=== PATIENT | female | born 1955 | race Caucasian/White ===

== ENCOUNTER 2017-02-14 09:40 | Emergency (ER) | payer OTHER ==
[2017-02-14 09:50] VITALS: PULSE 68; RESP 18
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
[2017-02-14 11:29] VITALS: BP 114/97; TEMP 97.7; O2SAT 97
== END 2017-02-14 11:29 | disposition home or self-care (01) ==
LOC: EDUNIT#
DX: S16.1XXA Strain of muscle, fascia and tendon at neck level, initial encounter (principal); Z79.82 Long term (current) use of aspirin; Z87.891 Personal history of nicotine dependence; V49.49XA Driver injured in collision with other motor vehicles in traffic accident, initial encounter; Y92.410 Unspecified street and highway as the place of occurrence of the external cause; Y99.8 Other external cause status; Y93.89 Activity, other specified

== ENCOUNTER → 2017-03-09 | Outpatient (CLI) | payer OTHER | LOC: FIMAGING 14:45 | PROVIDERS: ATTEND Internal Medicine | DX: Z12.31 Encounter for screening mammogram for malignant neoplasm of breast (principal); Z80.3 Family history of malignant neoplasm of breast | CPT/HCPCS: G0202 ==

== ENCOUNTER → 2018-03-13 | Outpatient (CLI) | payer OTHER | LOC: FIMAGING 15:57 | PROVIDERS: ATTEND Obstetrics & Gynecology | DX: Z12.31 Encounter for screening mammogram for malignant neoplasm of breast (principal); Z80.3 Family history of malignant neoplasm of breast ==

== ENCOUNTER 2018-05-12 21:13 | Emergency (ER) | payer OTHER ==
[2018-05-12] MEDS ORDERED: ACETAMINOPHEN 325 MG TAB ONE (21:27)
[2018-05-12] MEDS: ACETAMINOPHEN 325 MG TAB PO ONE (21:28)
[2018-05-12] MEDS: NS 1,000 ML IV ONE (21:48)
--- NOTE | 2018-05-12 21:58 | EDPHY ---
H & P Stated Complaint: surg thurs now fever Time Seen by Provider: 05/12/18 21:39 HPI/ROS: CHIEF COMPLAINT: Fever HISTORY OF PRESENT ILLNESS: This is a 62-year-old female who underwent replacement of bilateral breast implants and bilateral thigh liposuction on May 09. Today is postoperative day 2. Two hoursrs prior to her presentation she developed fever and shaking chills. She had nausea but no vomiting. She has been feeling a bit off throughout the day and states that she did not eat or drink very much today. She denies cough or shortness of breath. She does not have abdominal pain. She has moved her bowels postoperatively. She has had some burning with urination. She states that she was diagnosed with a vaginal yeast infection preoperatively and treated with Diflucan. She has also taken Monistat for this. REVIEW OF SYSTEMS: A ten point review of systems was performed and is negative with the exception of the items mentioned in the HPI. Past medical and surgical history: 1. Bipolar 2. Depression/anxiety 3. Bilateral breast implants with recent replacement 4. Tummy tuck 5. Bilateral liposuction 6. Bilateral hip replacements 7. Left knee replacement Social history: General Appearance: Alert. Vital signs reviewed. Heart rate 102, temperature 39.3 degrees, blood pressure 129/92, room air pulse ox 96%. Respiratory rate 22. Eyes: Pupils equal and round, no conjunctival injection, no discharge. Anicteric. ENT, Mouth: Mucous membranes are moist, no oropharyngeal erythema or edema. Neck: No lymphadenopathy, supple. Respiratory: Lungs are clear to auscultation; no wheezes, rales, or rhonchi. Thorax: Breasts without significant erythema or localized warmth. Her skin is warm throughout. Cardiovascular: Slightly tachycardic; no murmur, rub, or gallop. Gastrointestinal: Abdomen is soft and nontender, no masses or organomegaly, bowel sounds normal. Skin: Dry, no rashes on exposed skin, normal color. Back: Nontender to palpation over the thoracolumbar spine. No CVAT. Extremities: No lower extremity edema, no calf tenderness or swelling. She is wearing Mervin hose. No obvious erythema or localized warmth over either hip where the liposuction was performed. Neurological: Alert and oriented. Moving all four extremities easily and equally. PERRL. EOMI. Tongue midline. Facial expressions symmetric. Psychiatric: Normal affect. - Personal History Current Tetanus/Diphtheria Vaccine: Unsure Current Tetanus Diphtheria and Acellular Pertussis (TDAP): Unsure - Medical/Surgical History Hx Asthma: No Hx Chronic Respiratory Disease: No Hx Diabetes: No Hx Cardiac Disease: No Hx Renal Disease: No Hx Cirrhosis: No Hx Alcoholism: No Hx HIV/AIDS: No Hx Splenectomy or Spleen Trauma: No Other PMH: liposuction LTKA, bipolar, depression, anxiety, tummy tuck, breast implants, c1 fracture, bilat hip replacement, OA - Social History Smoking Status: Former smoker Constitutional: Initial Vital Signs Temperature (C) 39.3 C H 05/12/18 21:16 Heart Rate 102 H 05/12/18 21:16 Respiratory Rate 22 H 05/12/18 21:16 Blood Pressure 129/92 H 05/12/18 21:16 O2 Sat (%) 96 05/12/18 21:16 O2 Delivery Mode Room Air Allergies/Adverse Reactions: naproxen sodium [From Aleve] Allergy (Severe, Verified 08/04/15 14:06) Anaphylaxis morphine Allergy (Intermediate, Verified 06/07/15 16:47) Itching Home Medications: Medication Instructions Recorded ALPRAZolam [Xanax 0.25 MG (*)] 0.25 mg PO HS PRN 06/07/15 Atorvastatin Calcium [Lipitor 20 20 mg PO DAILY 06/07/15 mg (*)] QUEtiapine FUMARATE [Seroquel 200 200 mg PO HS 06/07/15 mg (*)] QUEtiapine FUMARATE [Seroquel 25 75 mg PO HS 06/07/15 mg (*)] lamoTRIgine [LamICTAL 100 MG (*)] 200 mg PO DAILY 06/07/15 Aspirin EC [Aspirin EC 325 mg (*)] 325 mg PO DAILY #20 tab 06/24/15 Docusate Sodium [Colace 100 MG (*)] 100 mg PO BID #60 cap 06/24/15 HYDROcodone/APAP 10/325 [[place] 1 - 2 tab PO Q6 PRN #30 tab 06/24/15 10/325 (*)] celeCOXIB [Celebrex (*)] 200 mg PO DAILY #20 cap 06/24/15 Aspirin EC [Aspirin EC 325 mg (*)] 325 mg PO DAILY #20 tab 08/05/15 Docusate Sodium [Colace 100 MG (*)] 100 mg PO BID #60 cap 08/05/15 Hydrocodone/APAP 5/325 [[place] 1 - 2 tab PO Q6 PRN #60 tab 08/05/15 5/325 (*)] celeCOXIB [Celebrex (*)] 200 mg PO DAILY #20 cap 08/05/15 Cephalexin [Keflex] 500 mg PO BID #14 cap 05/12/18 Medical Decision Making ED Course/Re-evaluation: Patient with postoperative fever. She is postop day 2. Status post replacement of bilateral breast implants and bilateral liposuction. Temperature 39.3 degrees on arrival with heart rate of 102, meeting sepsis screening criteria. At the time of my evaluation she has 2 L of IV normal saline running. Blood cultures are being obtained. Labs have been sent. She is not hypotensive. IV fluids were started shortly after arrival. She received a total of 2 L normal saline IV. Physical exam is unremarkable. Re-evaluated at 10:25 a.m.. She is starting to feel somewhat better and thinks that her fever is breaking. I reviewed her laboratories. Lactate is normal. I do not think that she has sepsis. Urinalysis is positive for urinary tract infection. She does not have CVA tenderness. I spoke with Dr. Soria, who performed her surgery 2 days ago. She did not have a Barboza catheter during the surgery. He is not concerned about her hip replacements, based upon the surgery that he performed. He will be able to see her in the office tomorrow to see how she is doing. She is being given ceftriaxone 1 g IV and will be transitioned to oral antibiotics ( Keflex). Vital signs all normal at discharge. Urine and blood cultures pending. Danger signs that should prompt her to return to the ED were reviewed. She understands that there is a concern for pyelonephritis (vs UTI). She will return if she is worse in any way. Differential Diagnosis: I considered a ddx that includes but is not limited to sepsis, pyelonephritis, UTI, ureterolithiasis, postoperative infection, and respiratory infection. - Data Points Laboratory Results: Laboratory Results 05/12/18 21:43 05/12/18 21:43 Medications Given: Discontinued Medications Acetaminophen (Tylenol) 650 mg PO EDNOW ONE Stop: 05/12/18 21:28 Last Admin: 05/12/18 21:28 Dose: 650 mg Sodium Chloride (Ns) 1,000 mls @ 0 mls/hr IV ONCE ONE; Wide Open PRN Reason: Protocol Stop: 05/12/18 21:49 Last Admin: 05/12/18 21:48 Dose: 1,000 mls Ceftriaxone Sodium/Dextrose (Rocephin 1 Gm (Premix)) 50 mls @ 100 mls/hr IV EDNOW ONE PRN Reason: Protocol Stop: 05/12/18 23:24 Last Admin: 05/12/18 23:04 Dose: 50 mls Departure - Departure Disposition: Home, Routine, Self-Care Clinical Impression: Urinary tract infection Qualifiers: Urinary tract infection type: acute cystitis Hematuria presence: with hematuria Qualified Code(s): N30.01 - Acute cystitis with hematuria Condition: Good Instructions: Urinary Tract Infection in Women (ED) Additional Instructions: Adult Pain & Fever Control: We recommend Acetaminophen (Tylenol) and Ibuprofen (Motrin,Advil) for pain and fever control. When fever is high or pain severe, both drugs can be used at the same time, but at different intervals. Please note the time differences. Your dose is: Acetaminophen [650]mg every 4 to 6 hours Note: do not take Acetaminophen with Hydrocodone (Vicodin, Lortab) or Oycodone (Percocet). These medications also contain Acetaminophen. No more than 3000mg of Acetaminophen should be taken in 24 hours (for an adult). Take the antibiotics as prescribed. You should begin the oral antibiotics tomorrow. Please follow up with Dr. Soria tomorrow. Call his office and he will see you tomorrow. I spoke with him on the telephone, is aware of lashonda's visit to the emergency department. If you are worse in any way--persistent fever, vomiting, inability to tolerate your medications, mid to upper back pain, new abdominal pain--please return for another evaluation. Referrals: Valerie Doshi MD [Primary Care Provider] - As per Instructions Prescriptions: Cephalexin [Keflex] 500 mg PO BID #14 cap
[2018-05-12 21:59] LABS: PLATELET COUNT 246 10^3/uL (150-400)
[2018-05-12 22:17] LABS: INR 0.93 (0.83-1.16); PROTIME(PATIENT) 12.7 SEC (12.0-15.0)
[2018-05-12 23:08] VITALS: BP 113/73
== END 2018-05-12 23:52 | disposition home or self-care (01) ==
DX: N30.01 Acute cystitis with hematuria (principal)
CPT/HCPCS: 96365; J0696